=== PATIENT | female | born 1995 | race Two or more races ===

== ENCOUNTER 2018-01-17 20:38 | Outpatient (CLI) | payer OTHER ==
[~2018-01-17 20:38] MED LIST: A/F PAIN RELIE500 MG PO; FA-80.8 MG
== END 2018-01-18 10:12 | disposition home or self-care (01) ==
LOC: OBS/DEL 20:38
DX: O99.013 Anemia complicating pregnancy, third trimester (principal); D64.89 Other specified anemias; O23.43 Unspecified infection of urinary tract in pregnancy, third trimester; O60.03 Preterm labor without delivery, third trimester; Z34.83 Encounter for supervision of other normal pregnancy, third trimester